=== PATIENT | female | born 1995 | race Caucasian/White ===

== ENCOUNTER → 2022-07-21 13:21 | Outpatient (BNVA) | payer MEDICAID, SELFPAY | PROVIDERS: Family Provider Nurse Practitioner; PCP Nurse Practitioner; Visit Provider Nurse Practitioner | DX: J02.0 Streptococcal pharyngitis (principal) | CPT/HCPCS: 87880 ==

== ENCOUNTER 2022-08-16 14:56 | Emergency (ER) | payer MEDICAID, SELFPAY ==
[2022-08-16 15:00] VITALS: BP 131/82; PULSE 103; RESP 17; TEMP 36.9; O2SAT 97; BMI 33.0
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
[2022-08-16] MEDS: tetanus-dipt-pertussis 0.5 mL SDV IM (16:05)
[2022-08-16] MEDS: HYDROcodone-acetaminophen 5-325 mg Tablet 1 TAB PO (16:05)
[2022-08-16 17:23] VITALS: PULSE 99; RESP 18; O2SAT 100
[2022-08-16 17:39] VITALS: RESP 17; O2SAT 100
--- NOTE | 2022-08-17 15:33 | DCPLANNER ---
sales account manager had message to schedule a follow up appointment for patient with oral maxillary surgery consult. sales account manager faxed patients information to Dr. Hood NUNES at the [place] location. Patients information was also uploaded to the cloud at [facility]. Patient has a follow up appointment scheduled for Thursday, August 18, 2022 at 10:[address] Morataya.
== END 2022-08-16 17:40 | disposition home or self-care (01) ==
PROVIDERS: Emergency Provider Physician Assistant; PCP Nurse Practitioner
DX: S03.2XXA Dislocation of tooth, initial encounter (principal); Y04.2XXA Assault by strike against or bumped into by another person, initial encounter; Y07.010 Husband, current, perpetrator of maltreatment and neglect; Z23 Encounter for immunization
CPT/HCPCS: 70450; 70486; 71045; 74018; 90471; 90715; 99284

== ENCOUNTER 2023-09-19 12:37 | Emergency (ER) | payer MEDICAID, SELFPAY ==
[2023-09-19 12:41] VITALS: BP 114/70; PULSE 53; RESP 18; TEMP 36.6; O2SAT 100; BMI 24.3
--- NOTE | 2023-09-19 13:04 | ED_ITS ---
HPI - Allergic Reaction General: Chief complaint: Allergic Reaction Stated complaint: allergic reaction Time Seen by Provider: 09/19/23 12:54 History of Present Illness: HPI narrative: 28-year-old female comes in today for co mplaints of increasing rash and concerns for allergic reaction. Patient appears nontoxic. Patient appears in no acute distress. Patient endorses being treated for poison kelvin on Wednesday with an injection and started on oral steroids. Review of Systems General: Reports: 10 or more systems reviewed and unremarkable except in HPI and below Skin/Breast: Reports: rash and pruritus PFSH ED PFSH: Social History Smoking and tobacco/nicotine status: never used tobacco/nicotine Physical Exam Const: COMMON NORMALS: alert HENMT: COMMON NORMALS: normocephalic HEAD & SCALP: normocephalic Neck/C-Spine: COMMON NORMALS: full ROM Resp: COMMON NORMALS: normal respiratory effort Cardio: COMMON NORMALS: regular rate RATE: regular rate Back/Pelvis: COMMON NORMALS: thoracic and lumbar spine normal to inspection Extremity: COMMON NORMALS: full ROM Neuro: SENSORIUM/ORIENTATION: Yes alert Skin: RASHES: rashes noted Course Vital Signs: Vital signs: Vital Signs Temperature 97.8 F 09/19/23 12:41 Pulse Rate 53 L 09/19/23 12:41 Respiratory Rate 18 09/19/23 12:41 Blood Pressure 114/70 09/19/23 12:41 Pulse Oximetry 100 09/19/23 12:41 Oxygen Delivery Me thod Room Air 09/19/23 12:41 MDM - Allergic Reaction Medical Decision Making Patient comes in today for a generalized rash increased on the forearms and the exposed skin of the leg. Patient appears nontoxic. Patient does endorse itching. Rash has some linear pattern and splash pattern. Clear vesicular lesions. Differential diagnosis includes not limited to contact dermatitis, chemical dermatitis, poison kelvin. No signs of severe distress is noted. Believe patient most likely has poison kelvin and just had a reexposure. Patient did endorse weed eating again on Wednesday. Believe this is probably just a new exposure. Reviewed exam with patient with recommendations for treatment and follow-up. Patient reported understanding. No radiology studies performed this visit Discharge Plan Discharge Patient Disposition: Home Clinical Impression: Poison kelvin dermatitis Condition: Stable Prescriptions: Continued prednisone 20 mg tablet 20 mg PO DAILY 7 Days Qty: 10 0RF No Action methylprednisolone acetate 40 mg/mL suspension 40 mg IM ONCE Qty: 1 0RF dexamethasone sodium phosphate 4 mg/mL solution 4 mg IM ONCE Qty: 1 0RF hydroxyzine HCl 25 mg tablet 25 mg PO TID PRN (Reason: itching) Qty: 30 0RF Discharge Orders: Discharge ED (Routine); Ordered 09/19/23 Ordered By: Ashok Herbert Discharge Diet: Usual diet Discharge Activity: Increase activity as tolerated Patient Instructions: Agnieszka Lopez (ED) Activity Restrictions/Additional Instructions: Drink plenty of water and fluids. Activity as tolerated. Follow-up with juan miguel bartlett for further instructions. Return to ED for new concerns. Coding Level of Care Code ED Junior Linux Administrator for Nelly Bahena
[2023-09-19] MEDS: dexamethasone 10 mg/mL INJ IM (13:16)
== END 2023-09-19 13:15 | disposition home or self-care (01) ==
PROVIDERS: Emergency Provider Nurse Practitioner Family
DX: L23.7 Allergic contact dermatitis due to plants, except food (principal)
CPT/HCPCS: 96372; 99284; J1100

== ENCOUNTER → 2023-11-10 15:16 | Outpatient (BNVA) | payer MEDICAID, SELFPAY | PROVIDERS: PCP Nurse Practitioner Family; Visit Provider Nurse Practitioner Family | DX: R21 Rash and other nonspecific skin eruption (principal); L25.5 Unspecified contact dermatitis due to plants, except food; Z79.899 Other long term (current) drug therapy; Z13.6 Encounter for screening for cardiovascular disorders | CPT/HCPCS: 80053; 80061; 81003; 83036; 84443; 85025 ==